=== PATIENT | female | born 1975 | race Hispanic/Latino ===

== ENCOUNTER 2020-04-06 17:46 | Emergency (ER) | payer OTHER ==
[2020-04-06] MEDS ORDERED: HYDROCODONE/ACETAMINOPHEN 10/325 MG TAB ONE (18:41)
== END 2020-04-06 19:48 | disposition home or self-care (01) ==
LOC: EDH 17:46
DX: S92.351A Displaced fracture of fifth metatarsal bone, right foot, initial encounter for closed fracture (principal); Z88.0 Allergy status to penicillin; X50.1XXA Overexertion from prolonged static or awkward postures, initial encounter; Y93.89 Activity, other specified; Y92.89 Other specified places as the place of occurrence of the external cause; Y99.8 Other external cause status
CPT/HCPCS: 73600; 73630

== ENCOUNTER 2020-12-29 19:26 | Emergency (ER) | payer SELFPAY ==
[~2020-12-29] VITALS: Ht 167.6 cm; Wt 72.6 kg
[2020-12-29 19:40] VITALS: BP 138/40
[2020-12-29 19:45] VITALS: BP 138/40
== END 2020-12-29 23:59 | disposition left against medical advice (07) ==
LOC: EDH 19:26
DX: R50.9 Fever, unspecified (principal); M79.10 Myalgia, unspecified site; Z53.21 Procedure and treatment not carried out due to patient leaving prior to being seen by health care provider